=== PATIENT | male | born 1935 | race Caucasian/White ===

== ENCOUNTER 2016-10-23 11:46 | Inpatient (IN) | payer OTHER ==
[~2016-10-23] VITALS: Ht 182.9 cm; Wt 98.6 kg
[2016-10-23 11:58] VITALS: BP_SYST 143
[2016-10-23] MEDS ORDERED: IPRA4AER INH (12:16)
[2016-10-23] MEDS ORDERED: MOME13HF2 INH (12:16)
[2016-10-23 12:20] LABS: BASOPHILS % (AUTO) 0.4 % (0.0-2.0); EOSINOPHILS # (AUTO) 0.2 K/uL (0.0-0.4); HEMATOCRIT 46.2 % (36-54); HEMOGLOBIN 15.1 g/dL (14.0-18.0); LYMPHOCYTES # (AUTO) 1.9 K/uL (1.0-5.5); LYMPHOCYTES % (AUTO) 24.6 % (20.5-51.5); MEAN CORPUSCULAR HEMOGLOBIN 29 pg (27-31); MEAN CORPUSCULAR HGB CONC 33 % (32-36); MEAN CORPUSCULAR VOLUME 90 fL (79.0-98.0); MONOCYTES # (AUTO) 0.9 K/uL (0.0-1.0); NEUTROPHILS # (AUTO) 4.9 K/uL (1.8-7.7); PLATELET COUNT (AUTO) 264 K/uL (130-430); RED BLOOD CELL COUNT(AUTO) 5.15 MIL/uL (4.2-6.2); RED CELL DISTRIBUTION WIDTH 12.6 % (9.0-15.0); WHITE BLOOD COUNT (AUTO) 7.9 K/uL (4.8-10.8)
[2016-10-23 12:32] LABS: INR 1.1 (0.80-1.20); PROTHROMBIN TIME 11.7 SECS (9.5-12.5)
[2016-10-23 12:40] LABS: ANION GAP 8 (5-15); CALCIUM 9.1 mg/dL (8.4-11.0); CHLORIDE 101 mmol/L (98-107); CREATININE 0.97 mg/dL (0.55-1.30); GLUCOSE 121 mg/dL (70-99); POTASSIUM 4.3 mmol/L (3.5-5.1); SODIUM SERUM 136 mmol/L (136-145); UREA NITROGEN, BLOOD 13 mg/dL (8-21)
[2016-10-23 12:46] LABS: ALANINE AMINOTRANSFERASE 31 U/L (12-78); ALBUMIN 3.7 g/dL (3.4-4.8); ASPARTATE AMINOTRANSFERASE 36 U/L (10-37); THYROID STIMULATING HORMONE 1.71 uIu/mL (0.34-4.82); TOTAL BILIRUBIN 0.6 mg/dL (0.0-1.0); TOTAL PROTEIN, SERUM 8.2 g/dL (6.4-8.3)
[2016-10-23 13:15] VITALS: BP_SYST 139
[2016-10-23 13:30] VITALS: BP_SYST 145
[2016-10-23] MEDS ORDERED: traMADol HCL HCL 50 MG TABLET (ULTRAM) PO PRN (13:45)
[2016-10-23] MEDS ORDERED: IPRATROPIUM/ALBUTEROL SULFATE 3 ML AMPUL.NEB INH PRN (13:45)
[2016-10-23] MEDS ORDERED: ACETAMINOPHEN 500 MG TABLET PO PRN (13:45)
[2016-10-23] MEDS ORDERED: ONDANSETRON HCL 4 MG/2 ML VIAL IVP PRN (13:45)
[2016-10-23] MEDS ORDERED: ZOLPIDEM TARTRATE 5 MG TABLET PO PRN (13:45)
[2016-10-23] MEDS: D5LR 1,000 ML IV SCH ×2 (15:33→22:18)
[2016-10-23] MEDS ORDERED: IOHEXOL 100 ML IV ONE (17:05)
[2016-10-23 17:50] VITALS: BP_SYST 145
[2016-10-23] MEDS: IPRATROPIUM/ALBUTEROL SULFATE 3 ML AMPUL.NEB INH SCH ×2 (19:48→23:59)
[2016-10-23 20:45] VITALS: BP_SYST 116
[2016-10-24] VITALS (17 sets, daily range): BP systolic 73–171
[2016-10-24 01:10] LABS: BILIRUBIN,URINE NEGATIVE (NEGATIVE); BLOOD, URINE NEGATIVE (NEGATIVE); CLARITY/URINE CLEAR (CLEAR); COLOR,URINE YELLOW (YELLOW); GLUCOSE,URINE NEGATIVE (NEGATIVE); KETONES,URINE NEGATIVE (NEGATIVE); LEUKOCYTE ESTERASE ,URINE NEGATIVE (NEGATIVE); NITRITE, URINE NEGATIVE (NEGATIVE); PH,URINE 6.5 (5.0-8.0); PROTEIN URINE NEGATIVE (NEGATIVE)
[2016-10-24] MEDS: IPRATROPIUM/ALBUTEROL SULFATE 3 ML AMPUL.NEB INH SCH ×6 (03:00→23:40)
[2016-10-24] MEDS: D5LR 1,000 ML IV SCH ×2 (08:19→18:39)
[2016-10-24] MEDS: PANTOPRAZOLE SODIUM 40 MG TAB PO SCH (08:30)
[2016-10-24] MEDS ORDERED: LIDOCAINE 1%, 20 ML MDV 20 ML ONE (11:01)
[2016-10-24] MEDS ORDERED: MORPHINE 2 MG/ML INJ. SYRINGE ONE (12:56)
[2016-10-24] MEDS ORDERED: SIMETHICONE 80 MG TAB.CHEW PO ONE (13:00)
[2016-10-24] MEDS: SIMETHICONE 80 MG TAB.CHEW PO SCH ×2 (14:28→20:29)
[2016-10-24] MEDS: MORPHINE 2 MG/ML INJ. SYRINGE IVP PRN ×4 (14:33→22:25)
[2016-10-24] MEDS ORDERED: HYDROmorphone 1 MG INJ. 1 MG/ML AMPUL IM PRN (14:45)
[2016-10-24] MEDS ORDERED: NACL 0.9% 1,000 ML IV ONE (15:15)
[2016-10-24 18:40] LABS: BASOPHILS % (AUTO) 0.2 % (0.0-2.0); EOSINOPHILS % (AUTO) 0.1 % (0.0-4.0); HEMATOCRIT 41.3 % (36-54); HEMOGLOBIN 13.7 g/dL (14.0-18.0); LYMPHOCYTES # (AUTO) 0.8 K/uL (1.0-5.5); LYMPHOCYTES % (AUTO) 7.9 % (20.5-51.5); MEAN CORPUSCULAR HEMOGLOBIN 30 pg (27-31); MEAN CORPUSCULAR HGB CONC 33 % (32-36); MEAN CORPUSCULAR VOLUME 91 fL (79.0-98.0); MONOCYTES # (AUTO) 0.7 K/uL (0.0-1.0); MONOCYTES % (AUTO) 7.5 % (1.7-9.3); NEUTROPHILS % (AUTO) 84.3 % (40.0-70.0); PLATELET COUNT (AUTO) 236 K/uL (130-430); RED BLOOD CELL COUNT(AUTO) 4.57 MIL/uL (4.2-6.2); RED CELL DISTRIBUTION WIDTH 12.7 % (9.0-15.0); WHITE BLOOD COUNT (AUTO) 9.5 K/uL (4.8-10.8)
[2016-10-24 19:37] LABS: ANION GAP 5 (5-15); CALCIUM 8.5 mg/dL (8.4-11.0); CHLORIDE 100 mmol/L (98-107); CREATININE 0.94 mg/dL (0.55-1.30); GLUCOSE 206 mg/dL (70-99); POTASSIUM 4.8 mmol/L (3.5-5.1); SODIUM SERUM 134 mmol/L (136-145); UREA NITROGEN, BLOOD 9 mg/dL (8-21)
[2016-10-24 19:45] LABS: PHOSPHORUS 2.9 mg/dL (2.7-4.5)
[2016-10-24] MEDS ORDERED: DEXTROSE 50% JECT 50 ML DISP.SYRIN IVP PRN (22:15)
[2016-10-25] VITALS (15 sets, daily range): BP systolic 145–167
[2016-10-25] MEDS: D5LR 1,000 ML IV SCH ×2 (02:59→13:13)
[2016-10-25] MEDS: IPRATROPIUM/ALBUTEROL SULFATE 3 ML AMPUL.NEB INH SCH ×5 (03:00→19:00)
[2016-10-25] MEDS: INSULIN REGULAR, HUMAN 100 UNITS/ML, 10 ML VIAL (novoLIN R) SUBCUT PRN ×3 (06:32→17:33)
[2016-10-25 06:34] LABS: BASOPHILS % (AUTO) 0.1 % (0.0-2.0); EOSINOPHILS % (AUTO) 0.2 % (0.0-4.0); HEMATOCRIT 37.2 % (36-54); HEMOGLOBIN 12.6 g/dL (14.0-18.0); LYMPHOCYTES # (AUTO) 1.3 K/uL (1.0-5.5); LYMPHOCYTES % (AUTO) 12.7 % (20.5-51.5); MEAN CORPUSCULAR HEMOGLOBIN 31 pg (27-31); MEAN CORPUSCULAR HGB CONC 34 % (32-36); MEAN CORPUSCULAR VOLUME 90 fL (79.0-98.0); MONOCYTES % (AUTO) 9.8 % (1.7-9.3); NEUTROPHILS # (AUTO) 8.2 K/uL (1.8-7.7); NEUTROPHILS % (AUTO) 77.2 % (40.0-70.0); PLATELET COUNT (AUTO) 233 K/uL (130-430); RED BLOOD CELL COUNT(AUTO) 4.13 MIL/uL (4.2-6.2); RED CELL DISTRIBUTION WIDTH 12.6 % (9.0-15.0); WHITE BLOOD COUNT (AUTO) 10.5 K/uL (4.8-10.8)
[2016-10-25] MEDS: MORPHINE 2 MG/ML INJ. SYRINGE IVP PRN ×2 (06:39→10:58)
[2016-10-25 06:49] LABS: ALANINE AMINOTRANSFERASE 405 U/L (12-78); ALBUMIN 3.2 g/dL (3.4-4.8); ANION GAP 7 (5-15); ASPARTATE AMINOTRANSFERASE 390 U/L (10-37); CALCIUM 8.7 mg/dL (8.4-11.0); CHLORIDE 99 mmol/L (98-107); CHOLESTEROL 140 mg/dL (<200); CREATININE 0.84 mg/dL (0.55-1.30); GLUCOSE 195 mg/dL (70-99); HDL CHOLESTEROL 41 mg/dL (>45); LDL CHOLESTEROL 94 mg/dL (<100); LIPASE 162 U/L (73-393); POTASSIUM 4.1 mmol/L (3.5-5.1); SODIUM SERUM 134 mmol/L (136-145); TOTAL BILIRUBIN 0.6 mg/dL (0.0-1.0); TOTAL PROTEIN, SERUM 7.3 g/dL (6.4-8.3); TRIGLYCERIDES 64 mg/dL (30-150); UREA NITROGEN, BLOOD 8 mg/dL (8-21)
[2016-10-25] MEDS: PANTOPRAZOLE SODIUM 40 MG TAB PO SCH (08:22)
[2016-10-25] MEDS: SIMETHICONE 80 MG TAB.CHEW PO SCH ×3 (08:22→21:47)
[2016-10-25] MEDS ORDERED: MILK OF MAGNESIA 30 ML UDC PO PRN (11:15)
[2016-10-25] MEDS ORDERED: MAG-AL HYDROX/SIMETH 30 ML UDC PO PRN (11:15)
[2016-10-25] MEDS ORDERED: MILK OF MAGNESIA 30 ML UDC PO ONE (11:15)
[2016-10-25] MEDS ORDERED: PANTOPRAZOLE SODIUM 40 MG TAB PO SCH (11:15)
[2016-10-26 00:26] VITALS: BP_SYST 146
[2016-10-26] MEDS: D5LR 1,000 ML IV SCH ×2 (01:17→09:42)
[2016-10-26 06:21] LABS: BASOPHILS % (AUTO) 0.1 % (0.0-2.0); EOSINOPHILS % (AUTO) 0.1 % (0.0-4.0); HEMATOCRIT 35.7 % (36-54); LYMPHOCYTES # (AUTO) 1.1 K/uL (1.0-5.5); LYMPHOCYTES % (AUTO) 8.3 % (20.5-51.5); MEAN CORPUSCULAR HEMOGLOBIN 30 pg (27-31); MEAN CORPUSCULAR HGB CONC 34 % (32-36); MEAN CORPUSCULAR VOLUME 90 fL (79.0-98.0); MONOCYTES % (AUTO) 15.5 % (1.7-9.3); NEUTROPHILS # (AUTO) 9.9 K/uL (1.8-7.7); PLATELET COUNT (AUTO) 184 K/uL (130-430); RED BLOOD CELL COUNT(AUTO) 3.96 MIL/uL (4.2-6.2); RED CELL DISTRIBUTION WIDTH 12.7 % (9.0-15.0)
[2016-10-26] MEDS: INSULIN REGULAR, HUMAN 100 UNITS/ML, 10 ML VIAL (novoLIN R) SUBCUT PRN (06:35)
[2016-10-26 06:45] LABS: ALANINE AMINOTRANSFERASE 621 U/L (12-78); ANION GAP 5 (5-15); ASPARTATE AMINOTRANSFERASE 511 U/L (10-37); CALCIUM 8.5 mg/dL (8.4-11.0); CHLORIDE 98 mmol/L (98-107); CREATININE 0.79 mg/dL (0.55-1.30); GLUCOSE 185 mg/dL (70-99); POTASSIUM 4.2 mmol/L (3.5-5.1); SODIUM SERUM 132 mmol/L (136-145); TOTAL BILIRUBIN 0.9 mg/dL (0.0-1.0); TOTAL PROTEIN, SERUM 6.9 g/dL (6.4-8.3); UREA NITROGEN, BLOOD 7 mg/dL (8-21)
[2016-10-26 08:07] VITALS: BP_SYST 129
[2016-10-26] MEDS: PANTOPRAZOLE SODIUM 40 MG TAB PO SCH (08:47)
[2016-10-26] MEDS: SIMETHICONE 80 MG TAB.CHEW PO SCH ×2 (08:47→15:39)
[2016-10-26] MEDS: IPRATROPIUM/ALBUTEROL SULFATE 3 ML AMPUL.NEB INH SCH ×2 (10:04→15:24)
[2016-10-26 11:36] VITALS: BP_SYST 119
[2016-10-26 11:39] VITALS: BP_SYST 119
[2016-10-26] MEDS ORDERED: BISACODYL 10 MG/SUPPOSITORY RC ONE (14:15)
[2016-10-26 16:23] VITALS: BP_SYST 128
== END 2016-10-26 17:20 | disposition home health service (06) | DRG 394 ==
LOC: SED 11:46 → SMU 12:10 → SIC 10-24 15:21 → STU 10-25 18:39
PROVIDERS: ADMIT Internal Medicine; ATTEND Internal Medicine
PROC: 0FB13ZX Excision of Right Lobe Liver, Percutaneous Approach, Diagnostic (ICD-10-PCS; principal; 2016-10-23)
DX: K42.0 Umbilical hernia with obstruction, without gangrene (principal); D62 Acute posthemorrhagic anemia; J96.10 Chronic respiratory failure, unspecified whether with hypoxia or hypercapnia; K91.840 Postprocedural hemorrhage of a digestive system organ or structure following a digestive system procedure; I10 Essential (primary) hypertension; J44.9 Chronic obstructive pulmonary disease, unspecified; J61 Pneumoconiosis due to asbestos and other mineral fibers; E66.9 Obesity, unspecified; F17.210 Nicotine dependence, cigarettes, uncomplicated; I70.90 Unspecified atherosclerosis; R73.9 Hyperglycemia, unspecified; Z79.899 Other long term (current) drug therapy; Z68.29 Body mass index [BMI] 29.0-29.9, adult; Y84.8 Other medical procedures as the cause of abnormal reaction of the patient, or of later complication, without mention of misadventure at the time of the procedure; Y73.0 Diagnostic and monitoring gastroenterology and urology devices associated with adverse incidents; Y92.89 Other specified places as the place of occurrence of the external cause
CPT/HCPCS: 36415; 47000; 71020-TC; 71260-TC; 74000-TC; 76705; 80048; 80053; 80061; 81003; 82962; 83036; 83690-TC; 83735-TC; 84100-TC; 84443-TC; 84484; 85025; 85610-TC; 85730-TC; 87081; 88307; 88313; 93005; 93306; 94640; 94760; 99285; J1170; J1815; J2001; J2270; J7030; J7120; Q9967

== ENCOUNTER 2016-11-02 13:55 | Day surgery (SDC) | payer OTHER ==
[~2016-11-02] VITALS: Ht 182.9 cm; Wt 98.4 kg
[~2016-11-02 13:55] MED LIST: IPRA4AER INH; MOME13HF2 INH
[2016-11-02] MEDS ORDERED: DEXTROSE 50% JECT 50 ML DISP.SYRIN IVP PRN (15:00)
[2016-11-02] MEDS ORDERED: MORPHINE 4 MG/ML INJ. SYRINGE IVP PRN (15:15)
[2016-11-02] MEDS ORDERED: ONDANSETRON HCL 4 MG/2 ML VIAL IVP PRN ×3 (15:15→16:00)
[2016-11-02] MEDS ORDERED: MORPHINE 2 MG/ML INJ. SYRINGE IVP PRN (15:15)
[2016-11-02] MEDS ORDERED: MIDAZOLAM HCL 5 MG/5 ML VIAL IVP ONE (15:23)
[2016-11-02] MEDS ORDERED: PROPOFOL 200MG/ 20ML VIAL (DIPRIVAN) IV ONE (15:23)
[2016-11-02] MEDS ORDERED: SEVOFLURANE 15 MIN GAS INH ONE (15:23)
[2016-11-02] MEDS ORDERED: NS IRRIG SOLN 1000 ML IR ONE (15:23)
[2016-11-02] MEDS ORDERED: fentaNYL CITRATE/PF 100 MCG/2 ML AMP IVP ONE (15:23)
[2016-11-02] MEDS ORDERED: BUPIVACAINE LIPOSOME/PF 266 MG/20 ML VIAL INFIL ONE (15:23)
[2016-11-02] MEDS ORDERED: LIDOCAINE/EPI 1% 1:100000 20 ML VIAL INJ ONE (15:23)
[2016-11-02] MEDS ORDERED: CEFAZOLIN 1 GM IVPB PREMIX 50 ML IV SCH (15:45)
[2016-11-02] MEDS ORDERED: KETOROLAC TROMETHAMINE 15 MG VIAL IVP PRN (15:45)
[2016-11-02] MEDS ORDERED: LR 1,000 ML IV SCH (15:59)
[2016-11-02] MEDS ORDERED: MEPERIDINE HCL/PF 25 MG/ML DISP.SYRIN IVP PRN ×2 (16:00)
[2016-11-02 17:48] VITALS: BP_SYST 119
[2016-11-02 18:05] VITALS: BP_SYST 121
[2016-11-02] MEDS: IPRATROPIUM/ALBUTEROL SULFATE 3 ML AMPUL.NEB INH SCH ×2 (19:00→23:10)
[2016-11-02] MEDS: INSULIN REGULAR, HUMAN 100 UNITS/ML, 10 ML VIAL (novoLIN R) SUBCUT PRN (21:08)
[2016-11-02] MEDS ORDERED: IPRATROPIUM/ALBUTEROL SULFATE 120 PUFFS/4 GM INH INH SCH (23:30)
[2016-11-03 00:44] VITALS: BP_SYST 110
[2016-11-03] MEDS: IPRATROPIUM/ALBUTEROL SULFATE 3 ML AMPUL.NEB INH SCH ×3 (03:00→10:02)
[2016-11-03 06:30] LABS: BASOPHILS % (AUTO) 0.3 % (0.0-2.0); EOSINOPHILS # (AUTO) 0.1 K/uL (0.0-0.4); EOSINOPHILS % (AUTO) 1.5 % (0.0-4.0); HEMOGLOBIN 12.3 g/dL (14.0-18.0); LYMPHOCYTES # (AUTO) 1.6 K/uL (1.0-5.5); LYMPHOCYTES % (AUTO) 16.3 % (20.5-51.5); MEAN CORPUSCULAR HEMOGLOBIN 30 pg (27-31); MEAN CORPUSCULAR HGB CONC 33 % (32-36); MEAN CORPUSCULAR VOLUME 90 fL (79.0-98.0); MONOCYTES # (AUTO) 1.2 K/uL (0.0-1.0); MONOCYTES % (AUTO) 11.9 % (1.7-9.3); PLATELET COUNT (AUTO) 379 K/uL (130-430); RED BLOOD CELL COUNT(AUTO) 4.14 MIL/uL (4.2-6.2); RED CELL DISTRIBUTION WIDTH 12.9 % (9.0-15.0); WHITE BLOOD COUNT (AUTO) 9.9 K/uL (4.8-10.8)
[2016-11-03 07:02] LABS: ALANINE AMINOTRANSFERASE 83 U/L (12-78); ALBUMIN 2.6 g/dL (3.4-4.8); ANION GAP 6 (5-15); ASPARTATE AMINOTRANSFERASE 41 U/L (10-37); CALCIUM 8.7 mg/dL (8.4-11.0); CHLORIDE 99 mmol/L (98-107); CREATININE 0.82 mg/dL (0.55-1.30); GLUCOSE 120 mg/dL (70-99); POTASSIUM 4.2 mmol/L (3.5-5.1); SODIUM SERUM 132 mmol/L (136-145); TOTAL BILIRUBIN 0.9 mg/dL (0.0-1.0); UREA NITROGEN, BLOOD 10 mg/dL (8-21)
[2016-11-03 08:00] VITALS: BP_SYST 124
[2016-11-03] MEDS ORDERED: COMMUNICATION ORDER XX ONE (08:45)
[2016-11-03] MEDS ORDERED: FLUTICASONE FUROATE 200 MCG BLST.W.DEV INH SCH (09:00)
[2016-11-03] MEDS: INSULIN REGULAR, HUMAN 100 UNITS/ML, 10 ML VIAL (novoLIN R) SUBCUT PRN (11:17)
== END 2016-11-03 15:35 | disposition home or self-care (01) ==
LOC: SDS 13:55 → SMU 13:55 → STU 17:26 → SDS 11-03 15:35
PROVIDERS: ATTEND Surgery
DX: K42.0 Umbilical hernia with obstruction, without gangrene (principal); J44.9 Chronic obstructive pulmonary disease, unspecified; E11.9 Type 2 diabetes mellitus without complications; K43.6 Other and unspecified ventral hernia with obstruction, without gangrene; Z88.8 Allergy status to other drugs, medicaments and biological substances; Z98.890 Other specified postprocedural states; F17.200 Nicotine dependence, unspecified, uncomplicated; F32.9 Major depressive disorder, single episode, unspecified; J61 Pneumoconiosis due to asbestos and other mineral fibers; I25.10 Atherosclerotic heart disease of native coronary artery without angina pectoris
CPT/HCPCS: 49587; 80053; 82962; 85025; 87081; 36415; 94640 ×2; 94760; 97116; 97163; 82948; C9290; J2250; J2704; J3010; J2270; J7120; C1781

== ENCOUNTER 2016-11-25 21:22 | Inpatient (IN) | payer OTHER ==
[~2016-11-25] VITALS: Ht 182.9 cm; Wt 92.1 kg
[2016-11-25 21:22] VITALS: BP_SYST 166
[2016-11-25] MEDS ORDERED: ALBUTEROL SULFATE 0.083% 2.5 MG/3 ML VIAL.NEB IH ONE (21:45)
[2016-11-25] MEDS ORDERED: PREDNISONE 20 MG TABLET PO ONE (21:45)
[2016-11-25] MEDS ORDERED: IPRATROPIUM BROM 0.5 MG/2.5 ML VIAL.NEB (ATROVENT) IH ONE (21:45)
[2016-11-25 22:33] LABS: BASOPHILS # (AUTO) 0.1 K/uL (0.0-0.2); BASOPHILS % (AUTO) 0.7 % (0.0-2.0); EOSINOPHILS # (AUTO) 0.1 K/uL (0.0-0.4); EOSINOPHILS % (AUTO) 1.5 % (0.0-4.0); HEMATOCRIT 46.3 % (36-54); HEMOGLOBIN 14.7 g/dL (14.0-18.0); LYMPHOCYTES # (AUTO) 2.9 K/uL (1.0-5.5); LYMPHOCYTES % (AUTO) 29.8 % (20.5-51.5); MEAN CORPUSCULAR HEMOGLOBIN 28 pg (27-31); MEAN CORPUSCULAR HGB CONC 32 % (32-36); MEAN CORPUSCULAR VOLUME 90 fL (79.0-98.0); MONOCYTES % (AUTO) 10.2 % (1.7-9.3); NEUTROPHILS # (AUTO) 5.6 K/uL (1.8-7.7); NEUTROPHILS % (AUTO) 57.8 % (40.0-70.0); PLATELET COUNT (AUTO) 311 K/uL (130-430); RED BLOOD CELL COUNT(AUTO) 5.16 MIL/uL (4.2-6.2); RED CELL DISTRIBUTION WIDTH 13.2 % (9.0-15.0); WHITE BLOOD COUNT (AUTO) 9.7 K/uL (4.8-10.8)
[2016-11-25] MEDS ORDERED: KETOROLAC TROMETHAMINE 30 MG VIAL IVP ONE (23:00)
[2016-11-25 23:25] LABS: ANION GAP 10 (5-15); CALCIUM 9.8 mg/dL (8.4-11.0); CHLORIDE 98 mmol/L (98-107); CREATININE 1.35 mg/dL (0.55-1.30); GLUCOSE 136 mg/dL (70-99); POTASSIUM 3.9 mmol/L (3.5-5.1); SODIUM SERUM 135 mmol/L (136-145); UREA NITROGEN, BLOOD 9 mg/dL (8-21)
[2016-11-25 23:29] LABS: ALANINE AMINOTRANSFERASE 30 U/L (12-78); ALBUMIN 3.4 g/dL (3.4-4.8); ASPARTATE AMINOTRANSFERASE 39 U/L (10-37); TOTAL BILIRUBIN 0.7 mg/dL (0.0-1.0)
[2016-11-26] VITALS (8 sets, daily range): BP systolic 119–148
[2016-11-26] MEDS ORDERED: IOHEXOL 350 mgI/mL, 150 ML INFUS..BTL IV ONE (00:21)
[2016-11-26] MEDS ORDERED: NACL 0.9% 1,000 ML IV ONE (01:00)
[2016-11-26] MEDS ORDERED: TAMS-11 PO (02:11)
[2016-11-26] MEDS ORDERED: FINA5TAB3 PO (02:12)
[2016-11-26] MEDS ORDERED: DIF100 PO (02:12)
[2016-11-26] MEDS ORDERED: AZITHROMYCIN 500 MG/VIAL (ZITHROMAX) IV ONE (03:36)
[2016-11-26] MEDS: IPRATROPIUM/ALBUTEROL SULFATE 3 ML AMPUL.NEB INH SCH ×3 (07:00→19:54)
[2016-11-26] MEDS: PANTOPRAZOLE SODIUM 40 MG/VIAL (PROTONIX) IVP SCH ×2 (08:55→20:58)
[2016-11-26] MEDS: TAMSULOSIN HCL 0.4 MG CAP PO SCH ×2 (08:56→20:58)
[2016-11-26] MEDS: PIPERACILLIN/TAZO 3.375/DEX-IS 50 ML IV SCH ×3 (14:29→23:24)
[2016-11-26] MEDS: AZITHROMYCIN 500 MG in NS 250 ML IV SCH (20:58)
[2016-11-26] MEDS: METOPROLOL TARTRATE 25 MG TABLET PO SCH (22:20)
[2016-11-27] VITALS: BP_SYST 121
[2016-11-27] MEDS: IPRATROPIUM/ALBUTEROL SULFATE 3 ML AMPUL.NEB INH SCH ×4 (00:25→19:00)
[2016-11-27 04:00] VITALS: BP_SYST 100
[2016-11-27] MEDS: PIPERACILLIN/TAZO 3.375/DEX-IS 50 ML IV SCH ×4 (05:53→23:13)
[2016-11-27 09:12] VITALS: BP_SYST 102
[2016-11-27] MEDS: TAMSULOSIN HCL 0.4 MG CAP PO SCH ×2 (09:14→21:14)
[2016-11-27] MEDS: METOPROLOL TARTRATE 25 MG TABLET PO SCH ×3 (09:15→22:09)
[2016-11-27] MEDS: PANTOPRAZOLE SODIUM 40 MG/VIAL (PROTONIX) IVP SCH ×2 (09:16→21:39)
[2016-11-27 13:11] VITALS: BP_SYST 122
[2016-11-27 17:15] VITALS: BP_SYST 103
[2016-11-27 19:30] VITALS: BP_SYST 107
[2016-11-27] MEDS: AZITHROMYCIN 500 MG in NS 250 ML IV SCH (21:39)
[2016-11-27] MEDS ORDERED: ONDANSETRON HCL 4 MG/2 ML VIAL ONE (21:44)
[2016-11-27] MEDS ORDERED: ONDANSETRON HCL 4 MG/2 ML VIAL IVP PRN (21:45)
[2016-11-28] MEDS: IPRATROPIUM/ALBUTEROL SULFATE 3 ML AMPUL.NEB INH SCH ×4 (00:53→19:57)
[2016-11-28] MEDS ORDERED: DILTIAZEM HCL 120 MG CAP.SR.24H PO ONE (03:15)
[2016-11-28] MEDS ORDERED: DILTIAZEM HCL 25 MG/5 ML VIAL IVP PRN (03:15)
[2016-11-28 03:41] VITALS: BP_SYST 108
[2016-11-28] MEDS: PIPERACILLIN/TAZO 3.375/DEX-IS 50 ML IV SCH ×3 (05:13→17:23)
[2016-11-28 08:00] VITALS: BP_SYST 110
[2016-11-28] MEDS: PANTOPRAZOLE SODIUM 40 MG/VIAL (PROTONIX) IVP SCH ×2 (10:23→21:17)
[2016-11-28] MEDS: TAMSULOSIN HCL 0.4 MG CAP PO SCH ×2 (10:39→20:23)
[2016-11-28] MEDS: DILTIAZEM HCL 120 MG CAP.SR.24H PO SCH (10:40)
[2016-11-28] MEDS: METOPROLOL TARTRATE 25 MG TABLET PO SCH ×2 (10:41→20:24)
[2016-11-28 12:00] VITALS: BP_SYST 99
[2016-11-28 16:00] VITALS: BP_SYST 97
[2016-11-28 19:30] VITALS: BP_SYST 108
[2016-11-28] MEDS ORDERED: MORPHINE 2 MG/ML INJ. SYRINGE IVP PRN (19:30)
[2016-11-28] MEDS: AZITHROMYCIN 500 MG in NS 250 ML IV SCH (21:17)
[2016-11-29 00:17] VITALS: BP_SYST 106
[2016-11-29] MEDS: PIPERACILLIN/TAZO 3.375/DEX-IS 50 ML IV SCH ×4 (00:17→18:36)
[2016-11-29] MEDS: IPRATROPIUM/ALBUTEROL SULFATE 3 ML AMPUL.NEB INH SCH ×4 (01:15→19:03)
[2016-11-29] MEDS: PANTOPRAZOLE SODIUM 40 MG/VIAL (PROTONIX) IVP SCH ×2 (09:58→21:00)
[2016-11-29 12:07] VITALS: BP_SYST 112
[2016-11-29] MEDS: TAMSULOSIN HCL 0.4 MG CAP PO SCH ×2 (13:51→21:00)
[2016-11-29] MEDS: METOPROLOL TARTRATE 25 MG TABLET PO SCH ×2 (13:52→21:00)
[2016-11-29] MEDS: DILTIAZEM HCL 120 MG CAP.SR.24H PO SCH (13:53)
[2016-11-29 15:19] VITALS: BP_SYST 112
[2016-11-29 16:02] VITALS: BP_SYST 102
[2016-11-29 20:00] VITALS: BP_SYST 102
[2016-11-29] MEDS: AZITHROMYCIN 500 MG in NS 250 ML IV SCH (21:00)
[2016-11-29] MEDS ORDERED: MORPHINE PCA 50 mg/50 mL NS 50 ML IV ONE (23:30)
[2016-11-30] VITALS: BP_SYST 124
[2016-11-30] MEDS: MORPHINE I.V. DRIP 100 ML IV PRN ×2 (00:11→01:16)
[2016-11-30] MEDS: IPRATROPIUM/ALBUTEROL SULFATE 3 ML AMPUL.NEB INH SCH ×3 (01:00→13:00)
[2016-11-30] MEDS ORDERED: DIPHENHYDRAMINE INJ 50 MG/ML VIAL IVP ONE (05:45)
[2016-11-30] MEDS: PIPERACILLIN/TAZO 3.375/DEX-IS 50 ML IV SCH ×3 (06:00→12:00)
[2016-11-30] MEDS ORDERED: COMMUNICATION ORDER XX ONE (06:15)
[2016-11-30] MEDS ORDERED: NALOXONE HCL 0.4 MG/ML AMP (NARCAN) IVP PRN (06:30)
[2016-11-30] MEDS: HYDROMORPHONE PCA 10 mg/50 mL IV PRN ×3 (07:33→15:54)
[2016-11-30] MEDS: PANTOPRAZOLE SODIUM 40 MG/VIAL (PROTONIX) IVP SCH (09:00)
[2016-11-30] MEDS: METOPROLOL TARTRATE 25 MG TABLET PO SCH (09:00)
[2016-11-30] MEDS: DILTIAZEM HCL 120 MG CAP.SR.24H PO SCH (09:00)
[2016-11-30] MEDS: TAMSULOSIN HCL 0.4 MG CAP PO SCH (09:00)
[2016-12-06] MEDS ORDERED: MORPHINE I.V. DRIP 100 ML IV PRN (21:50)
== END 2016-11-30 16:38 | disposition expired | DRG 180 ==
LOC: SED 21:22 → STU 11-26 02:06
PROVIDERS: ADMIT Internal Medicine; ATTEND Internal Medicine
DX: C34.92 Malignant neoplasm of unspecified part of left bronchus or lung (principal); J18.9 Pneumonia, unspecified organism; J96.20 Acute and chronic respiratory failure, unspecified whether with hypoxia or hypercapnia; R64 Cachexia; J44.0 Chronic obstructive pulmonary disease with (acute) lower respiratory infection; B37.0 Candidal stomatitis; C78.7 Secondary malignant neoplasm of liver and intrahepatic bile duct; C79.72 Secondary malignant neoplasm of left adrenal gland; J38.00 Paralysis of vocal cords and larynx, unspecified; J44.1 Chronic obstructive pulmonary disease with (acute) exacerbation; Z66 Do not resuscitate; J84.10 Pulmonary fibrosis, unspecified; E11.9 Type 2 diabetes mellitus without complications; R13.10 Dysphagia, unspecified; F17.210 Nicotine dependence, cigarettes, uncomplicated; R07.89 Other chest pain; I10 Essential (primary) hypertension; K21.9 Gastro-esophageal reflux disease without esophagitis; Z77.090 Contact with and (suspected) exposure to asbestos; Z51.5 Encounter for palliative care; J20.9 Acute bronchitis, unspecified; N40.0 Benign prostatic hyperplasia without lower urinary tract symptoms; Z88.6 Allergy status to analgesic agent; Z68.27 Body mass index [BMI] 27.0-27.9, adult; Z99.81 Dependence on supplemental oxygen
CPT/HCPCS: 36415; 71010; 71275; 80053; 82550-TC; 83880; 84484; 85025; 85379; 92610-GN; 93005; 94640; 94760; 99285; C9113; J0456; J1170; J1200; J1885; J2270; J2405; J2543; J7050; J7512; Q9967